=== PATIENT | male | born 1955 | race Hispanic/Latino ===

== ENCOUNTER → 2017-07-15 | Day surgery (SDC) | payer OTHER ==
--- NOTE | 2017-07-12 15:33 | Diagnostic Imaging Report ---
PROCEDURE: Frontal and lateral views of the chest. COMPARISON: None. INDICATIONS: SURGERY ON Wednesday FINDINGS: Lines/tubes: None. Lungs: The lungs are well inflated and clear. There is no evidence of pneumonia or pulmonary edema. Pleura: There is no pleural effusion or pneumothorax. Heart and mediastinum: The heart and the mediastinum are normal. Bones: No acute bony abnormality. IMPRESSION: 1. No acute cardiopulmonary disease. Dictated by: Ced Cartwright M.D. on 07/12/2017 at 15:33 Electronically approved by: Ced Cartwright M.D. on 07/12/2017 at 15:33
[2017-07-12 15:38] LABS: BASOPHILS % 0.4 % (0.0-1.0); EOSINOPHILS # (AUTO) 0.1 (0.0-0.4); EOSINOPHILS % 1.5 % (0.0-6.0); HEMATOCRIT 41.6 % (38.2-49.6); HEMOGLOBIN 14.1 g/dL (14.0-18.0); LYMPHOCYTES # (AUTO) 2.5 (1.0-3.2); MEAN CORPUSCULAR HEMOGLOBIN 29.8 pg (28-32); MEAN CORPUSCULAR HGB CONC 33.9 g/dL (31-35); MEAN CORPUSCULAR VOLUME 87.9 fL (81-99); MONOCYTES # (AUTO) 0.5 (0.2-0.8); MONOCYTES % 6.1 % (4.4-11.3); NEUTROPHILS # (AUTO) 4.7 (2.1-6.9); NEUTROPHILS % 59.9 % (38.7-80.0); PLATELET COUNT 191 x10e3/uL (140-360); RED BLOOD COUNT 4.73 x10e6/uL (4.3-5.7); RED CELL DISTRIBUTION WIDTH 13.5 % (11.7-14.4)
[2017-07-12 15:54] LABS: ANION GAP 14.8 mmol/L (8-16); CALCIUM 9.2 mg/dL (8.4-10.2); CREATININE, SERUM 1.33 mg/dL (0.72-1.25); POTASSIUM 4.8 mmol/L (3.5-5.1)
[~2017-07-15] MED LIST: AMIODARONE HCL200 MG PO; AVODART0.5 MG PO; DEXAMETHASONE SOD PHOS INJ 4 MG/ML VIAL ONE; FENTANYL CITRATE/PF 100MCG/2 ML INJ ONE; LIDOCAINE HCL 2% LOCAL INJ 5 ML SDV VIAL INJ ONE; METOPROLOL TART50 MG PO; MIDAZOLAM HCL 2 MG/2 ML VIAL ONE; ONDANSETRON HCL INJ 2 MG/ML VIAL ONE; PROPOFOL IV EMULSION 10 MG/ML 20 ML VIAL ONE; SEVOFLURANE INHAL SOLN 250 ML PEN BTL ONE; XARELTO20 MG PO
--- OUTSIDE RECORDS SUMMARY | 2017-07-15 07:47 | XMS REPORT ---
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 Allergies, Adverse Reactions, Alerts This patient has no known allergies or adverse reactions. Medications This patient has no known medications. Results Test Description Test Time Test Comments Text Results Atomic Results Result Comments CHEST 2 VIEWS [place] [address] Patient Name: LISANDRA MARRERO MR #: [id number] : 1955 Age/Sex: 61/M Req #: [id number] Adm Physician: Ordered by: WANDA HICKS MD Report #: [id number] Location: OR Room/Bed: Procedure: [id number] DX/CHEST 2 VIEWS Exam Date: 07/12/17 Exam Time: 1520 REPORT STATUS: Signed PROCEDURE: Frontal and lateral views of the chest. COMPARISON: None. INDICATIONS: SURGERY ON Wednesday FINDINGS: Lines/tubes: None. Lungs: The lungs are well inflated and clear. There is no evidence of pneumonia or pulmonary edema. Pleura: There is no pleural effusion or pneumothorax. Heart and mediastinum: The heart and the mediastinum are normal. Bones: No acute bony abnormality. IMPRESSION: 1. No acute cardiopulmonary disease. Dictated by: Ced Cartwright M.D. on 07/12/2017 at 15:33 Electronically approved by: Ced Cartwright M.D. on 07/12/2017 at 15:33 Dictated By: CED CARTWRIGHT MD 1533 Transcribed By: KASH on 07/12/17 1533 COPY TO: WANDA HICKS MD
--- NOTE | 2017-07-18 09:56 | Operative Report ---
DATE OF PROCEDURE: July 15, 2017 PREOPERATIVE DIAGNOSES: 1. History of transitional cell carcinoma of the bladder. 2. Hematuria. POSTOPERATIVE DIAGNOSES: 1. History of transitional cell carcinoma of the bladder. 2. Hematuria. OPERATIVE PROCEDURES PERFORMED: 1. Cystoscopy. 2. Direct bladder biopsies. ANESTHESIA: General anesthesia. ESTIMATED BLOOD LOSS: Minimal. INDICATIONS: Mr. Jefferson Geller is a 61-year-old gentleman with a prior history of T1 TCC of the bladder, who recently had hematuria. Upper tracts were normal. He now presents for management of his bladder. PROCEDURE IN DETAIL: The patient was brought to the operating room and placed in supine position. After administration of general anesthesia, was placed in dorsal lithotomy position, and prepped and draped in usual sterile fashion. Cystourethroscopy was performed using a 21-E[place] cystoscope. The anterior and posterior urethra were noted to be normal. The prostate revealed mild lateral lobar hyperplasia. There was some friability noted at the prostate tissue, which was bleeding easily. The bladder was entered without difficulty. Upon entrance into the bladder, ureteral orifices were in normal anatomical position and produced clear efflux. There were grade 2 trabeculations noted throughout without any identified mucosal lesions. There was some scarring seen on the posterior wall from presumably prior resection. There were no erythematous patches or papillary lesions noted. Using the cold cup bladder biopsy forceps, biopsies were taken from the posterior wall, right and left lateral araiza. All of the biopsy sites were visually normal. The biopsy sites were fulgurated using the electrocautery device. Once adequate hemostasis was obtained, the cystoscope and sheaths were removed, and the patient was returned to supine position. Anesthesia was reversed, and patient was transferred to a bed and taken to the postanesthesia care unit in good condition. Of note, the needle and instrument counts were correct at the conclusion of the case. The pathological specimens were sent for microscopic analysis. Job#: [id number]
== END | disposition home or self-care (01) ==
LOC: OR 07:44
PROVIDERS: ATTEND Urology
DX: Z09 Encounter for follow-up examination after completed treatment for conditions other than malignant neoplasm (principal); Z85.51 Personal history of malignant neoplasm of bladder; R31.9 Hematuria, unspecified; N40.0 Benign prostatic hyperplasia without lower urinary tract symptoms; N32.89 Other specified disorders of bladder; I10 Essential (primary) hypertension; I48.91 Unspecified atrial fibrillation; Z01.810 Encounter for preprocedural cardiovascular examination; Z01.812 Encounter for preprocedural laboratory examination; Z01.818 Encounter for other preprocedural examination; Z79.02 Long term (current) use of antithrombotics/antiplatelets
CPT/HCPCS: 36415; 52214; 71046; 80048; 85025; 88305; 93005; J1100; J2001; J2250; J2405